=== PATIENT | female | born 1960 | race Caucasian/White ===

== ENCOUNTER 2020-01-25 17:17 | Emergency (ER) | payer OTHER ==
[~2020-01-25] VITALS: Ht 162.6 cm; Wt 68.0 kg
[2020-01-25 17:28] VITALS: BP 122/80
--- NOTE | 2020-01-25 17:28 | NUR ---
ED Nurse Note: PT walked in to ed for c/o swelling and pain to behind her right ear area / neck area x 2 days. PT reports having "problems" with right ear since 2006 Addendum: 01/25/20 at 1738 by [facility] ED Nurse Note: PT walked in to ed for c/o swelling and pain to behind her right ear area / neck area x 2 days. 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
[2020-01-25] MEDS ORDERED: AMOXICILLIN500 MG ORAL (18:02)
[2020-01-25] MEDS ORDERED: IBUPROFEN400 MG ORAL (18:02)
[2020-01-25 18:15] VITALS: BP 113/86
--- NOTE | 2020-01-25 18:15 | NUR ---
ER DISCHARGE NOTE: Patient is cleared to be discharged per ERMD, pt is aox4, on room air, with stable vital signs. pt was given dc and prescription instructions, pt was able to verbalize understanding, pt id band removed without complications. pt is able to ambulate with steady gait. pt took all belongings.
--- NOTE | 2020-01-27 00:29 | Emergency Room Report ---
History of Present Illness General Chief Complaint: Earache Source: Patient Present Illness HPI Patient is a 59-year-old female presents after increased right-sided earache. Onset of symptoms 3 days ago. Reports having persistent problems with the right ear and currently is scheduled for MRI due to some hearing loss and tinnitus in the right ear. She is currently seeing ENT. Denies any recent trauma. Had not been having any cough. Not been having any fever. Allergies: Coded Allergies: No Known Allergies (Unverified , 01/25/20) COVID-19 Screening Contact w/high risk pt: No Recent Travel to affected area: No Experienced COVID-19 symptoms?: No COVID-19 Testing performed TEAROOM HOST: No Patient History Past Medical History: see triage record Reviewed Nursing Documentation: PMH: Agreed; PSxH: Agreed Nursing Documentation-PMH Past Medical History: No History, Except For Hx Hypertension: Yes Review of Systems All Other Systems: negative except mentioned in HPI Physical Exam Vital Signs Date Time Temp Pulse Resp B/P (MAP) Pulse Ox O2 Delivery O2 Flow Rate FiO2 01/25/20 17:23 98.2 89 15 119/80 (93) 98 Room Air General Appearance: well appearing, no apparent distress Head: normocephalic, atraumatic ENT: hearing grossly normal, normal voice Neck: full range of motion, supple, other - posterior cervical lymphadenopathy. Respiratory: lungs clear, no respiratory distress, speaking full sentences Cardiovascular #1: normal inspection Musculoskeletal: no calf tenderness Neurologic: normal gait Psychiatric: mood/affect normal Skin: no rash Medical Decision Making Diagnostic Impression: Primary Impression: Lymphadenopathy of head and neck ER Course Patient presented for right-sided earache. Differential diagnosis include but was not limited to otitis media, cancer, lymphadenitis among others. Patient has a benign exam and does not appear to require any imaging or laboratory testing at this time. Patient does not have any evidence of acute pathology. She was given oral analgesics. Patient was advised to follow-up with her previously scheduled ENT appointment. She is given prescription for ibuprofen amoxicillin due to lymphadenopathy. She advised that she needed further work- up and should definitely follow-up with her ENT. She was advised to return if worse. Last Vital Signs Date Time Temp Pulse Resp B/P (MAP) Pulse Ox O2 Delivery O2 Flow Rate FiO2 01/25/20 18:15 98.0 84 16 113/86 98 Room Air Disposition: HOME, SELF-CARE Condition: Improved Scripts Ibuprofen* (MOTRIN*) 400 Mg Tablet 400 MG ORAL Q8H, #30 TAB 0 Refills Prov: Chavo Vargas MD 01/25/20 Amoxicillin* (AMOXIL*) 500 Mg Capsule 500 MG ORAL THREE TIMES A DAY, #21 CAP Prov: Chavo Vargas MD 01/25/20 Referrals: NON PHYSICIAN (PCP) Patient Instructions: Lymphadenopathy Additional Instructions: Follow up with your ENT for further evaluation of right sided ear pain. Return if worsening pain, fever, persistent vomiting or weakness Chavo Vargas MD January 27, 2020 00:29
== END 2020-01-25 18:15 | disposition home or self-care (01) ==
LOC: EMR 18:00
DX: R59.1 Generalized enlarged lymph nodes (principal); I10 Essential (primary) hypertension
CPT/HCPCS: 99282